=== PATIENT | female | born 1950 | race Two or more races ===

== ENCOUNTER 2024-11-11 14:03 | Emergency (ER) | payer OTHER, SELFPAY ==
--- NOTE | 2024-11-11 14:26 | ED.GENMED ---
ED Provider Triage
<Alvaro Newton PA-C - Last Filed: 11/11/24 14:28>
-
Patient seen by provider in Triage?: Seen in Triage
Attestation: A medical screening examination has been initiated by a qualified medical provider. Based on the assessment performed at this time, it has been determined that an emergent medical condition may exist and the patient has been informed
that further medical evaluation and possible additional diagnostic testing may be needed.
HPI: Family reports patient has been experiencing shortness of breath and upper abdominal pain for the last few days. Has been giving Gas-X with minimal relief. Today patient started complaining of some chest discomfort, had CABG in 2005. Family
brought her in because of the chest discomfort. Stat EKG ordered. Labs including COVID and flu ordered.
GENERAL: Alert , in no apparent distress
EYE: No visual abnormalities.
NECK: Trachea midline
ENT: No visible abnormalities.
LUNGS: No acute respiratory distress
NEUROLOGICAL: Alert and oriented
SKIN: Skin intact. No visible changes.
MUSCULOSKELETAL: Moving extremities normally
PSYCH: Normal and appropriate interaction.
This is a medical evaluation conducted in person to initiate diagnostic evaluation and provide initial therapeutics. Please see further documentation by the treating clinician.
History of Present Illness
<Alvaro Newton PA-C - Last Filed: 11/11/24 14:28>
General
Chief Complaint: Breathing Problem
Time Seen by Provider: 11/11/24 19:13
<Bertrand Bhatia MD - Last Filed: 11/11/24 22:05>
History of Present Illness
History of Present Illness:
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
abdominal pain and chest pain. Patient's son is at bedside provides all the history. He states that he has been cleaning up diffuse abdominal pain for the past few days. When she gets abdominal pain she also developed midsternal chest pain. She
has been having decreased p.o. secondary to the pain. She does have significant gas p.m. she has been taking Gas-X for. Normal bowel movements. Initially they did state shortness of breath and cough to the nursing team. However to me he denies
any shortness of breath but states when she gets the abdominal pain she appears uncomfortable. No fevers chills. No nausea or vomiting. No diarrhea. No hemoptysis leg swelling. Her GI team is both here and at [place] but did not quit seeing
them for quite some time. She is on daily omeprazole.
Past History
<Alvaro Newton PA-C - Last Filed: 11/11/24 14:28>
Past History
ED Past Medical History: CAD, HTN and Other (dm, esophageal cancer)
Social History
Tobacco: Non-smoker
Alcohol: None
Drug: None
Living: with family
Phy Exam
<Bertrand Bhatia MD - Last Filed: 11/11/24 22:05>
Physical Exam
Physical Exam:
GENERAL: in no acute distress
HEENT: normocephalic, extraocular movements intact, moist oral mucosa
NECK: normal inspection, tracheostomy in place
RESPIRATORY: no respiratory distress, clear to auscultation bilaterally
CARDIOVASCULAR: regular rate and rhythm
ABDOMEN/: soft, non-distended, mild tenderness to palpation diffusely, no rebound or guarding
EXTREMITIES: non-tender, no edema/swelling
NEUROLOGIC: awake and alert, moves all extremities
SKIN: warm
Scores
<Bertrand Bhatia MD - Last Filed: 11/11/24 22:05>
Heart Failure Risk
Heart Failure Risk Score: Not Applicable
Course
<Alvaro Newton PA-C - Last Filed: 11/11/24 14:28>
Orders/Labs/Results
Orders:
Orders
11/11/24 14:28
Electrocardiogram (*1) Urgent
Reason for Study: Chest Pain
EKG- Treatment ONCE
11/11/24 14:42
COVID-19 Antigen Urgent
Source: Nasal Swab
Complete Blood Count/With Diff Urgent
Comprehensive Metabolic Panel Urgent
Lipase Urgent
Troponin I Urgent
Influenza A+B Rapid Molecular Urgent
ASTRID Source: Nasal Swab
Specimen Description:
11/11/24 19:26
CT Abd/pelvis W Iv Cont Urgent
Comment:
Reason For Exam: abdominal pain
11/11/24 19:27
CR Chest - 2 Views Urgent
Comment:
Reason For Exam: chest pain
Abnormal Lab Results
11/11/24
14:42
RBC 3.44 L 10^6/uL
(4.20-5.40)
Hgb 8.9 L g/dL
(12.0-16.0)
Hct 29.6 L %
(37.0-47.0)
MCH 25.9 L pg
(27.0-31.0)
MCHC 30.1 L g/dL
(33.0-37.0)
RDW 14.9 H %
(11.5-14.5)
Eosinophils % 7.0 H %
(0-6)
Sodium 133 L mmol/L
(135-145)
Potassium 5.3 H mmol/L
(3.5-5.1)
BUN 20 H mg/dl
(7-17)
Creatinine 1.1 H mg/dL
(0.6-1.0)
11/11/24 14:42
11/11/24 14:42
Vital Signs
Initial and Last Documented VS:
Initial Vital Signs
Temp Pulse Resp BP Pulse Ox
98.2 F 71 18 146/69 100
11/11/24 14:28 11/11/24 14:28 11/11/24 14:28 11/11/24 14:28 11/11/24 14:28
Last Documented Vital Signs
Temp Pulse Resp BP Pulse Ox
97.9 F 62 23 139/59 99
11/11/24 18:33 11/11/24 18:46 11/11/24 18:46 11/11/24 18:33 11/11/24 18:57
<Bertrand Bhatia MD - Last Filed: 11/11/24 22:05>
Orders/Labs/Results
Orders:
Orders
11/11/24 14:28
Electrocardiogram (*1) Urgent
Reason for Study: Chest Pain
EKG- Treatment ONCE
11/11/24 14:42
COVID-19 Antigen Urgent
Source: Nasal Swab
Complete Blood Count/With Diff Urgent
Comprehensive Metabolic Panel Urgent
Lipase Urgent
Troponin I Urgent
Influenza A+B Rapid Molecular Urgent
ASTRID Source: Nasal Swab
Specimen Description:
11/11/24 19:26
CT Abd/pelvis W Iv Cont Urgent
Comment:
Reason For Exam: abdominal pain
11/11/24 19:27
CR Chest - 2 Views Urgent
Comment:
Reason For Exam: chest pain
Abnormal Lab Results
11/11/24
14:42
RBC 3.44 L 10^6/uL
(4.20-5.40)
Hgb 8.9 L g/dL
(12.0-16.0)
Hct 29.6 L %
(37.0-47.0)
MCH 25.9 L pg
(27.0-31.0)
MCHC 30.1 L g/dL
(33.0-37.0)
RDW 14.9 H %
(11.5-14.5)
Eosinophils % 7.0 H %
(0-6)
Sodium 133 L mmol/L
(135-145)
Potassium 5.3 H mmol/L
(3.5-5.1)
BUN 20 H mg/dl
(7-17)
Creatinine 1.1 H mg/dL
(0.6-1.0)
11/11/24 14:42
11/11/24 14:42
Vital Signs
Initial and Last Documented VS:
Initial Vital Signs
Temp Pulse Resp BP Pulse Ox
98.2 F 71 18 146/69 100
11/11/24 14:28 11/11/24 14:28 11/11/24 14:28 11/11/24 14:28 11/11/24 14:28
Last Documented Vital Signs
Temp Pulse Resp BP Pulse Ox
97.9 F 62 23 139/59 99
11/11/24 18:33 11/11/24 18:46 11/11/24 18:46 11/11/24 18:33 11/11/24 18:57
<Bertrand Bhatia MD - Last Filed: 11/11/24 22:05>
MDM/Problems Addressed
Differential Diagnosis Includes:
Patient is a 74-year-old man with history of CAD requiring CABG and stent, esophageal cancer status post esophageal ectomy that was complicated by tracheal esophageal fistula and then tracheal stenosis requiring tracheostomy presenting to the
emergency room with abdominal pain and chest pain. Vitals are unremarkable and exam does show diffuse abdominal tenderness. Differential is broad but consists of esophagitis versus constipation Versus atypical ACS though less likely. Patient exam
not consistent with obstruction, volvulus or other acute abdomen causes. Blood work obtained prior to my evaluation is at baseline. EKG per my interpretation with no significant ST changes. Will obtain chest x-ray and CT scan of the abdomen
pelvis. I did offer pain control however patient states the pain is manageable at this time.
<Bertrand Bhatia MD - Last Filed: 11/11/24 22:05>
*Critical Care Note
Total Time (30-74mins, 75-104mins- exclusive of procedures): Not Applicable
<Bertrand Bhatia MD - Last Filed: 11/11/24 22:05>
Update Note
Update Note:
On reevaluation patient resting comfortably. Pain remains controlled. CT scan per my interpretation with gallstone and stool burden.. Per the official read no gallbladder wall thickening. Otherwise no acute findings. Patient and patient's
family member updated at bedside. They will follow-up with general surgeon regarding the gallstones to see if it needs to be removed electively outpatient. Patient educated on starting MiraLAX as well given that the pain is worse after eating. I
did clarify and the pain is not worse in the right upper quadrant. The pain is usually worse in the lower abdomen after eating. All questions answered. Patient stable for discharge at this time.
ED Attending Note
<Alvaro Newton PA-C - Last Filed: 11/11/24 14:28>
-
Portions of this chart may have been created with voice recognition software.� Occasional wrong word or��sound alike� substitutions may have occurred due to the inherent limitations of voice recognition software.
Discharge Plan
Departure
Patient Disposition: Home (Routine Discharge)
Date of Disposition: 11/11/24
Time of Disposition: 22:01
Patient with high blood pressure during this ER visit?: No
Discharge Problem:
Abdominal pain
Instructions: Abdominal pain in adults - ED discharge instructions
Prescriptions:
No Action
carvedilol 6.25 MG tablet
6.25 mg PO BID
aspirin 81 MG tablet,delayed release (/EC)
81 mg PO DAILY
simvastatin 20 MG tablet
20 mg PO QPM
clopidogrel [Plavix] 75 MG tablet
75 mg PO DAILY
omeprazole 40 MG capsule,delayed release(DR/EC)
40 mg PO DAILY
levothyroxine 75 MCG tablet
75 mcg PO DAILY
gabapentin 100 MG capsule
100 mg PO BID
metformin 1,000 MG tablet
1,000 mg PO DAILY Qty: 0 0RF
Referrals:
Jared Daniel MD [Family Provider] -
Kalpesh Armstrong MD [Active] -
Activity Restrictions/Additional Instructions:
You have been evaluated in the Emergency Department today for abdominal pain. Your evaluation did not show evidence of medical conditions requiring emergent intervention at this time. Please follow-up with the general surgeon regarding your
gallstone.
Please schedule an appointment with your primary care physician.
Return to the Emergency Department if you experience worsening or uncontrolled pain, fevers 100.4�F or greater, recurrent vomiting, inability to tolerate food or fluids by mouth, bloody stools or vomit, black or tarry stools, or any other concerning
symptoms.
Thank you for choosing us for your care.
Interventions
Interventions:
*Risk Screen - Suicide Last Done: 11/11/24 18:48
*General Assessment Last Done: 11/11/24 18:48
*Neglect/Abuse Screening Last Done: 11/11/24 18:48
*ED COVID-19 Vaccine History Last Done: 11/11/24 14:28
*Nursing Disposition Last Done: 11/11/24 18:48
Discharge Date and Time
Print Language: YAKUT
[2024-11-11 14:28] VITALS: BP 146/69
[2024-11-11 14:59] LABS: % Basophils 0.8 % (0-2); % Immature Granulocytes 0.2 % (0-0.5); % Lymphocytes 24.5 % (20.5-51.1); % Monocytes 8.6 % (1.7-9.3); % Neutrophils 58.9 % (42.2-75.2); Absolute Basophils 0.1 10^3/uL (0-0.2); Absolute Eosinophils 0.5 10^3/uL (0-0.7); Absolute Lymphocytes 1.6 10^3/uL (1.2-3.4); Absolute Monocytes 0.6 10^3/uL (0.1-0.6); Absolute Neutrophils 3.9 10^3/uL (1.4-6.5); Hematocrit 29.6 % (37.0-47.0); Hemoglobin 8.9 g/dL (12.0-16.0); Mean Corp Hgb Conc. 30.1 g/dL (33.0-37.0); Mean Corpuscular Hgb 25.9 pg (27.0-31.0); Mean Platelet Volume 9.9 fL (7.4-10.4); Nucleated Red Blood Cells % 0 %; Platelet Count 276 10^3/uL (130-400); Red Blood Cell Count 3.44 10^6/uL (4.20-5.40); Red Cell Dist. Width 14.9 % (11.5-14.5); White Blood Cell Count 6.6 10^3/uL (4.8-10.8)
[2024-11-11 15:02] LABS: COVID-19 Antigen Negative (Negative)
[2024-11-11 15:04] LABS: ALT (SGPT) 18 U/L (0-35); AST (SGOT) 26 U/L (14-36); Albumin 3.9 g/dl (3.5-5.0); Alkaline Phosphatase 103 U/L (38-126); Blood Urea Nitrogen 20 mg/dl (7-17); Calcium 8.7 mg/dl (8.4-10.2); Carbon Dioxide 22 mmol/L (22-30); Chloride 102 mmol/L (98-107); Glucose 71 mg/dl (70-99); Lipase 222 U/L (23-300); Potassium 5.3 mmol/L (3.5-5.1); Sodium 133 mmol/L (135-145); Total Bilirubin 0.3 mg/dl (0.2-1.3); Total Protein 6.5 g/dl (6.3-8.2)
[2024-11-11 15:15] LABS: Troponin I < 0.012 ng/ml
[2024-11-11 16:35] VITALS: BP 127/58
[2024-11-11 18:33] VITALS: BP 139/59
== END 2024-11-11 22:47 | disposition home or self-care (01) ==
LOC: EMR 14:03
PROVIDERS: Physician Assistant Medical; EMERGENCY PHYSICIAN Student in an Organized Health Care Education/Training Program; FAMILY PHYSICIAN Family Medicine
DX: R10.10 Upper abdominal pain, unspecified (principal); Z11.52 Encounter for screening for COVID-19
CPT/HCPCS: 99285; 71046; 74177; 80053; 83690; 84484; 85025; 87502; 87811; 93005; Q9967